=== PATIENT | female | born 1945 | race Caucasian/White ===

== ENCOUNTER 2018-01-09 08:37 | Emergency (ER) | payer MEDICARE ==
[~2018-01-09] VITALS: Ht 165.1 cm; Wt 68.5 kg
[~2018-01-09 08:37] MED LIST: CIMETIDINE; HYDROCODONE AP; Z.0.AMLODIPINE BESYL PO; Z.0.SYNTHROID100 MCG PO; Z.2.METFORMIN HCL500 PO
[2018-01-09] MEDS ORDERED: ONDANSETRON HCL INJ 2 MG/ML VIAL IV STA (09:04)
[2018-01-09 09:24] LABS: BASOPHILS % 0.4 % (0.0-1.0); EOSINOPHILS % 0.2 % (0.0-6.0); HEMATOCRIT 39.1 % (34.2-44.1); HEMOGLOBIN 13.9 g/dL (12.0-16.0); LYMPHOCYTES # (AUTO) 0.9 (1.0-3.2); LYMPHOCYTES % 16.4 % (18.0-39.1); MEAN CORPUSCULAR HGB CONC 35.5 g/dL (31-35); MEAN CORPUSCULAR VOLUME 84.3 fL (81-99); MONOCYTES # (AUTO) 0.2 (0.2-0.8); MONOCYTES % 3.8 % (4.4-11.3); NEUTROPHILS # (AUTO) 4.2 (2.1-6.9); PLATELET COUNT 285 x10e3/uL (140-360); RED BLOOD COUNT 4.64 x10e6/uL (3.6-5.1); RED CELL DISTRIBUTION WIDTH 11.9 % (11.7-14.4)
[2018-01-09 09:37] LABS: CLARITY,URINE CLEAR (CLEAR); COLOR,URINE YELLOW (YELLOW); LEUKOCYTE ESTERASE ,URINE TRACE (NEGATIVE); NITRITE,URINE NEGATIVE (NEGATIVE); PROTEIN,URINE DIPSTICK TRACE (NEGATIVE)
[2018-01-09 09:38] LABS: BILIRUBIN,URINE NEGATIVE (NEGATIVE); KETONES,URINE NEGATIVE (NEGATIVE); URINE UROBILINOGEN 0.2 mg/dL (0.2 - 1)
[2018-01-09] MEDS ORDERED: PRAVASTATIN SOD20 MG PO (09:40)
[2018-01-09] MEDS ORDERED: LISINOPRIL2.5 MG PO (09:40)
[2018-01-09 09:45] LABS: ALANINE AMINOTRANSFERASE 27 IU/L (0-55); ALBUMIN 3.9 g/dL (3.5-5.0); ALBUMIN/GLOBULIN RATIO 1.3 (0.8-2.0); ALKALINE PHOSPHATASE 75 IU/L (40-150); AMYLASE 53 U/L (25-125); ANION GAP 11.6 mmol/L (8-16); BLOOD UREA NITROGEN 8 mg/dL (7-26); BUN/CREATININE RATIO 11 (6-25); CALCIUM 9.6 mg/dL (8.4-10.2); CARBON DIOXIDE 25 mmol/L (22-29); CHLORIDE 103 mmol/L (98-107); CREATINE KINASE 45 IU/L (29-168); CREATININE, SERUM 0.76 mg/dL (0.57-1.11); EST GLOMERULAR FILTRATION RATE > 60 ML/MIN (60-); GLUCOSE 155 mg/dL (74-118); LIPASE 37 U/L (8-78); POTASSIUM 3.6 mmol/L (3.5-5.1); SODIUM 136 mmol/L (136-145)
[2018-01-09] MEDS ORDERED: ONDANSETRON HCL 4 MG ORAL DISINTEGRATING TAB PO ONE (09:45)
[2018-01-09 09:54] LABS: WBC,URINE (MAN) 0-5 /HPF (0-5)
[2018-01-09 09:55] LABS: EPITHELIAL CELLS,URINE FEW /LPF
[2018-01-09] MEDS ORDERED: CELEBREX100 MG PO (09:59)
[2018-01-09] MEDS ORDERED: TYLENOL # 31 EA PO (09:59)
[2018-01-09] MEDS ORDERED: REGLAN10 MG PO (09:59)
[2018-01-09] MEDS ORDERED: OMEPRAZOLE40 MG PO (09:59)
[2018-01-09] MEDS ORDERED: PROMETHAZINE HC25 M1 PO (09:59)
[2018-01-09] MEDS ORDERED: FAMOTIDINE20 MG PO (09:59)
[2018-01-09] MEDS ORDERED: SUCRALFATE1 GM PO (09:59)
--- NOTE | 2018-01-09 12:58 | Diagnostic Imaging Report ---
PROCEDURE:ABDOMEN ACUTE SERIES W/PA CXR COMPARISON:None available. INDICATIONS:EPIGASTRIC PAIN FINDINGS: CHEST: Lungs are grossly clear. No consolidation or effusion. Cardiomediastinal silhouette is unremarkable. Pulmonary vasculature is normal. BOWEL PATTERN: Nonobstructive. No air-filled, dilated loops of bowel. Moderate amount of retained stool in the colon. SOFT TISSUES: Cholecystectomy clips. 3.3 cm peripherally calcified lesion projecting in the right pelvis. BONES: No acute bony abnormalities. Degenerative disc changes in the lumbosacral spine. Moderate degenerative changes in bilateral hip joints, with joint space narrowing and subchondral sclerosis. 0.5 cm rounded calcifications projecting at the level of the left SI joint. Ill-defined 0.5 cm rounded density projecting just lateral to the left L4 transverse process. CONCLUSION: 1. No acute thoracic abnormality. 2. No evidence of bowel obstruction. 3. Indeterminate rounded calcific densities in the left pelvis. These may represent phleboliths, less likely vascular calcifications. A 3.3 cm peripherally calcified lesion in the right pelvis may represent an exophytic calcified fibroid or old hematoma. Technique 4. Ill-defined 0.5 cm rounded density projecting lateral to the left L4 transverse process may be located in bowel, however, a mid ureteral calculus could be considered in the setting of hematuria Denny Ariza M.D. Dictated by: Denny Ariza M.D. on 01/09/2018 at 12:59 Electronically approved by: Denny Ariza M.D. on 01/09/2018 at 12:59
[2018-01-09] MEDS ORDERED: KETOROLAC TROMETHAMINE 30 MG/ML VIAL IV STA (14:05)
[2018-01-09] MEDS ORDERED: KETOROLAC TROMETHAMINE 30 MG/ML VIAL IV SCH (14:15)
[2018-01-09 14:24] VITALS: BP 124/60
== END 2018-01-09 14:40 | disposition home or self-care (01) ==
LOC: ER 08:39
DX: R11.0 Nausea (principal); K59.00 Constipation, unspecified; E11.9 Type 2 diabetes mellitus without complications; I10 Essential (primary) hypertension
CPT/HCPCS: 36415; 74022; 80053; 81001; 82150; 82550; 82553; 83690; 84484; 85025; 93005; 99284

== ENCOUNTER 2018-03-27 15:45 | Emergency (ER) | payer MEDICARE ==
[~2018-03-27] VITALS: Ht 165.1 cm; Wt 68.5 kg
[~2018-03-27 15:45] MED LIST changes: +CELEBREX100 MG PO; +FAMOTIDINE20 MG PO; +LISINOPRIL2.5 MG PO; +OMEPRAZOLE40 MG PO; +PRAVASTATIN SOD20 MG PO; +PROMETHAZINE HC25 M1 PO; +REGLAN10 MG PO; +SUCRALFATE1 GM PO; +TYLENOL # 31 EA PO
[2018-03-27] MEDS ORDERED: SODIUM CHLORIDE 0.9% 1000ML 1,000 ML IV STA (16:18)
[2018-03-27 16:26] LABS: BILIRUBIN,URINE NEGATIVE (NEGATIVE); CLARITY,URINE CLEAR (CLEAR); COLOR,URINE YELLOW (YELLOW); KETONES,URINE NEGATIVE (NEGATIVE); LEUKOCYTE ESTERASE ,URINE NEGATIVE (NEGATIVE); NITRITE,URINE NEGATIVE (NEGATIVE); PROTEIN,URINE DIPSTICK NEGATIVE (NEGATIVE); URINE UROBILINOGEN 0.2 mg/dL (0.2 - 1)
[2018-03-27] MEDS ORDERED: KETOROLAC TROMETHAMINE 30 MG/ML VIAL IV ONE (16:30)
[2018-03-27] MEDS ORDERED: CEFTRIAXONE SOD 1 GM VIAL IV ONE (16:30)
[2018-03-27] MEDS ORDERED: FAMOTIDINE 20 MG/2 ML VIAL IV ONE (16:30)
[2018-03-27] MEDS ORDERED: ONDANSETRON HCL INJ 2 MG/ML VIAL IV ONE (16:30)
[2018-03-27 16:33] LABS: EPITHELIAL CELLS,URINE RARE /LPF; MUCUS,URINE FEW (RARE); RBC,URINE 0-5 /HPF (0-5)
[2018-03-27 16:54] LABS: BASOPHILS % 0.5 % (0.0-1.0); EOSINOPHILS % 0.6 % (0.0-6.0); HEMATOCRIT 37.9 % (34.2-44.1); HEMOGLOBIN 13.2 g/dL (12.0-16.0); LYMPHOCYTES # (AUTO) 1.1 (1.0-3.2); LYMPHOCYTES % 16.6 % (18.0-39.1); MEAN CORPUSCULAR HEMOGLOBIN 29.9 pg (28-32); MEAN CORPUSCULAR HGB CONC 34.8 g/dL (31-35); MEAN CORPUSCULAR VOLUME 85.7 fL (81-99); MONOCYTES # (AUTO) 0.4 (0.2-0.8); MONOCYTES % 5.6 % (4.4-11.3); NEUTROPHILS # (AUTO) 4.9 (2.1-6.9); NEUTROPHILS % 76.4 % (38.7-80.0); PLATELET COUNT 295 x10e3/uL (140-360); RED BLOOD COUNT 4.42 x10e6/uL (3.6-5.1); RED CELL DISTRIBUTION WIDTH 12.1 % (11.7-14.4)
[2018-03-27] MEDS ORDERED: DIATRIZOATE MEGL/DIATRIZOA SOD 30 ML BTL PO ONE (17:01)
[2018-03-27 17:12] LABS: ALANINE AMINOTRANSFERASE 14 IU/L (0-55); ALBUMIN 4.2 g/dL (3.5-5.0); ALBUMIN/GLOBULIN RATIO 1.6 (0.8-2.0); ALKALINE PHOSPHATASE 85 IU/L (40-150); ANION GAP 11.7 mmol/L (8-16); BLOOD UREA NITROGEN 10 mg/dL (7-26); BUN/CREATININE RATIO 14 (6-25); CALCIUM 9.6 mg/dL (8.4-10.2); CARBON DIOXIDE 27 mmol/L (22-29); CHLORIDE 98 mmol/L (98-107); EST GLOMERULAR FILTRATION RATE > 60 ML/MIN (60-); GLUCOSE 111 mg/dL (74-118); POTASSIUM 3.7 mmol/L (3.5-5.1); SODIUM 133 mmol/L (136-145)
--- NOTE | 2018-03-27 18:48 | Diagnostic Imaging Report ---
EXAM: CT Abdomen and Pelvis WITHOUT contrast INDICATION: Acute abdomen. Concern for small bowel obstruction, diverticulitis, pancreatitis or hernia. COMPARISON: None. TECHNIQUE: Abdomen and pelvis were scanned utilizing a multidetector helical scanner from the lung base to the pubic symphysis without administration of IV contrast. Absence of intravenous contrast decreases sensitivity for detection of focal lesions and vascular pathology. Coronal and sagittal reformations were obtained. Routine protocol was performed. IV CONTRAST: None. ORAL CONTRAST: Gastrografin water mixture. RADIATION DOSE: Total DLP: 319.61 mGy*cm Estimated effective dose: (DLP x 0.015 x size factor) mSv COMPLICATIONS: None FINDINGS: LINES and TUBES: None. LOWER THORAX: Unremarkable HEPATOBILIARY: No focal hepatic lesions. No biliary ductal dilation. GALLBLADDER: Status post cystectomy. SPLEEN: No splenomegaly. PANCREAS: No focal masses or ductal dilatation. ADRENALS: No adrenal nodules KIDNEYS/URETERS: No hydronephrosis. 5.2 cm cyst in the upper pole of the right kidney. No stones. GI TRACT: No abnormal distention, wall thickening, or evidence of bowel obstruction. Descending and sigmoid colon diverticulosis without CT evidence of acute diverticulitis. Appendix is not clearly identified, however, no dilated tubular structure in the right lower quadrant CT chest acute appendicitis. PELVIC ORGANS/BLADDER: Coarse calcification in the right hemipelvis abutting the right ovary, nonspecific. The uterus is retroflexed. LYMPH NODES: No lymphadenopathy. VESSELS: There is moderate atherosclerotic disease in the aorta and major arterial branches. PERITONEUM / RETROPERITONEUM: No free air or fluid. BONES: There are degenerative changes in the lumbar spine. SOFT TISSUES: Unremarkable. IMPRESSION: 1. Colonic diverticulosis without acute diverticulitis. Signed by: Dr. Kelly Joy M.D. on 03/27/2018 6:44 PM
== END 2018-03-27 19:10 | disposition home or self-care (01) ==
LOC: ER 15:50
DX: R10.33 Periumbilical pain (principal); R11.2 Nausea with vomiting, unspecified; R19.7 Diarrhea, unspecified; N23 Unspecified renal colic
CPT/HCPCS: 36415; 74176; 80053; 81001; 85025; 87086; 99284; J0696; J1885; J2405; J7030

== ENCOUNTER → 2020-04-08 | Outpatient (CLI) | payer MEDICARE ==
[~2020-04-08] MED LIST changes: +LEVOTHYROXINE50 MCG PO; +LINZESS290 MCG PO; +LOVASTATIN20 MG PO; +PROTONIX20 MG PO; +REGADENOSON 0.4 MG/5 ML SYR IV ONE
--- NOTE | 2020-04-09 16:32 | Myoview Stress Test ---
DATE OF STUDY: 04/08/2020 09:47:00 Stress Test - Treadmill ONLY Dictation #[id number] PROCEDURE TITLE: Rest/stress single isotope SPECT imaging with pharmacologic stress and gated SPECT imaging. INDICATION: Abnormal EKG. PROCEDURE IN DETAIL: Pharmacologic stress testing was performed with regadenoson per protocol. The heart rate was 84 beats per minute at rest, increased to 105 beats per minute during the regadenoson infusion. The resting blood pressure was 140/64 mmHg and increased to 165/49 mmHg, which is a normal response. The resting electrocardiogram demonstrated normal sinus rhythm with ST-T wave abnormalities. There were no ST-segment changes suggestive of myocardial ischemia. Myocardial perfusion imaging was performed at rest following the injection of 10.9 mCi of tetrofosmin. At peak pharmacologic effect, the patient was injected with 32.3 mCi of tetrofosmin. Gated post-stress tomographic imaging was performed. FINDINGS: The overall quality of study is fair. Left ventricular cavity is noted to be normal size on the rest and stress studies. SPECT images demonstrate homogeneous tracer distribution throughout the myocardium. Gated SPECT imaging reveals normal myocardial thickening and wall motion. The left ventricular ejection fraction was calculated to be greater than 70%. IMPRESSION: Myocardial perfusion imaging is normal. Overall, left ventricular systolic function was normal without regional wall motion abnormalities. Felicita Godinez MD ABS/MODL /[id number]
== END ==
LOC: NM 09:34
PROVIDERS: ATTEND Internal Medicine
DX: Z01.810 Encounter for preprocedural cardiovascular examination (principal)
CPT/HCPCS: 78452; 93017; 93306; A9502; J2785

== ENCOUNTER 2020-04-12 08:11 | Observation (INO) | payer MEDICARE, OTHER ==
--- NOTE | 2020-04-07 12:39 | Diagnostic Imaging Report ---
EXAMINATION: CHEST 2 VIEWS INDICATION: Pre-operative COMPARISON: None FINDINGS: LINES/TUBES:None LUNGS:The lungs are well-inflated. No focal consolidation or pulmonary edema. PLEURA:No pleural effusion or pneumothorax. MEDIASTINUM:The cardiomediastinal silhouette appears normal in size and shape. BONES/SOFT TISSUES:No acute osseous injury. Sternotomy wires in place. ABDOMEN:No free air under the diaphragm. IMPRESSION: No focal pneumonia or pulmonary edema. Signed by: Chino Yost MD on 04/07/2020 12:36 PM
[~2020-04-12] VITALS: Ht 167.6 cm; Wt 58.1 kg
[~2020-04-12 08:11] MED LIST changes: -REGADENOSON 0.4 MG/5 ML SYR IV ONE; +ROPIVACAINE 246.25 MG, EPINEPHRINE HCL 1:1000 1ML 0.5 MG, CLONIDINE HCL 0.08 MG, KETORO... INJ ONE
[2020-04-12 09:17] LABS: BASOPHILS % 0.5 % (0.0-1.0); EOSINOPHILS % 0.5 % (0.0-6.0); HEMATOCRIT 42.2 % (34.2-44.1); HEMOGLOBIN 13.8 g/dL (12.0-16.0); LYMPHOCYTES # (AUTO) 1.2 (1.0-3.2); LYMPHOCYTES % 19.4 % (18.0-39.1); MEAN CORPUSCULAR HEMOGLOBIN 28.5 pg (28-32); MEAN CORPUSCULAR HGB CONC 32.7 g/dL (31-35); MEAN CORPUSCULAR VOLUME 87.2 fL (81-99); MONOCYTES # (AUTO) 0.3 (0.2-0.8); MONOCYTES % 4.3 % (4.4-11.3); NEUTROPHILS # (AUTO) 4.7 (2.1-6.9); NEUTROPHILS % 75.1 % (38.7-80.0); PLATELET COUNT 331 x10e3/uL (140-360); RED BLOOD COUNT 4.84 x10e6/uL (3.6-5.1); RED CELL DISTRIBUTION WIDTH 12.7 % (11.7-14.4)
[2020-04-12] MEDS ORDERED: CELECOXIB 200 MG CAP ONE (09:20)
[2020-04-12] MEDS ORDERED: DEXAMETHASONE SOD PHOS 10 MG/1 ML VIAL ONE (09:20)
[2020-04-12] MEDS ORDERED: GABAPENTIN 300 MG CAP ONE (09:21)
[2020-04-12] MEDS ORDERED: CEFAZOLIN SOD 1 GM/NS 50ML 100 ML IV ONE (09:21)
[2020-04-12] MEDS ORDERED: VANCOMYCIN HCL 1,000 MG ONE (09:22)
[2020-04-12] MEDS ORDERED: SODIUM CHLORIDE 0.9% 500ML 500 ML ONE (09:22)
[2020-04-12] MEDS ORDERED: BACITRACIN 50,000 UNIT VIAL ONE (09:22)
[2020-04-12] MEDS ORDERED: TRANEXAMIC ACID 1,000 MG/10 ML ML ONE (09:22)
[2020-04-12] MEDS ORDERED: BUPIVACAINE 7.5MG/ML /DEXTROSE 82.5MG/ML 2 ML AMP INJ ONE (09:37)
[2020-04-12 09:45] LABS: ANION GAP 14.1 mmol/L (8-16); BLOOD UREA NITROGEN 14 mg/dL (7-26); BUN/CREATININE RATIO 21 (6-25); CALCIUM 9.7 mg/dL (8.4-10.2); CARBON DIOXIDE 25 mmol/L (22-29); CHLORIDE 104 mmol/L (98-107); CREATININE, SERUM 0.67 mg/dL (0.57-1.11); EST GLOMERULAR FILTRATION RATE > 60 ML/MIN (60-); GLUCOSE 112 mg/dL (74-118); POTASSIUM 4.1 mmol/L (3.5-5.1); SODIUM 139 mmol/L (136-145)
[2020-04-12] MEDS ORDERED: KETOROLAC TROMETHAMINE 30 MG/ML VIAL IV PRN (11:30)
[2020-04-12] MEDS ORDERED: ONDANSETRON HCL INJ 2MG/ML 2ML 2 MG/ML VIAL IV PRN (11:30)
[2020-04-12] MEDS ORDERED: ZOLPIDEM TARTRATE 5 MG TAB PO PRN (11:30)
[2020-04-12] MEDS ORDERED: ACETAMINOPHEN 650 MG SUPP PR PRN (11:30)
[2020-04-12] MEDS ORDERED: HYDROCODONE/APAP 5MG-325MG TAB PO PRN (11:30)
[2020-04-12] MEDS ORDERED: DIPHENHYDRAMINE HCL INJ 50 MG/ML VIAL IV PRN (11:30)
[2020-04-12] MEDS ORDERED: DOCUSATE SODIUM 100 MG CAP PO PRN (11:30)
--- NOTE | 2020-04-12 12:02 | Diagnostic Imaging Report ---
EXAMINATION: PELVIS AP 1-2 VIEWS INDICATION: Postoperative COMPARISON: None FINDINGS: AP view of the pelvis demonstrates immediate postoperative findings of right total hip replacement. Alignment is anatomic. No unexpected fracture. Postoperative subcutaneous soft tissue emphysema. Surgical skin meghann in place. Moderate degenerative changes of the [place] left hip joint. IMPRESSION: Anatomic alignment status post right total hip replacement. Signed by: Chino Yost MD on 04/12/2020 11:59 AM
--- NOTE | 2020-04-12 13:05 | NUR ---
RECEIVED PATIENT FROM PACU. PATIENT A/O X3, EVEN RESPIRATIONS ON RA. LUNG SOUNDS CLEAR. RIGHT HIP DRESSING C/D/I. ABDUCTOR PILLOW IN PLACE. FOOT PUMPS BILATERAL AND ANABELLA HOSE TO LEFT LEG. LEFT FA IV INTACT AND PATENT.
[2020-04-12 13:53] VITALS: BP 110/50
[2020-04-12 13:54] VITALS: BP 110/50
[2020-04-12 13:55] VITALS: BP 110/50
[2020-04-12] MEDS ORDERED: PHENYLEPHRINE HCL 1% 10 MG/ML VIAL ONE (13:56)
[2020-04-12] MEDS ORDERED: CEFAZOLIN SOD 1 GM/NS 50ML 50 ML IV SCH (14:00)
--- NOTE | 2020-04-12 15:26 | NUR ---
DR SARAVIA OFFICE PREARRANGED FOLLOWING DISCHARGE PLAN OF: HOME [address] [id number] [facility] CONFIRMED WITH [employer] [phone] DME 3 IN ONE COMMODE PROVIDED BY Who@ [employer] [phone], SHE HAS ALREADY PICKED UP, SHE HAS A ROLLATER AND NEEDS ROLLING WALKER, ASKED FOR ORDER, OBTAINED SIGNATURES AND PROVIDED ONE FOR HER. NEETA SIGNED AND ON CHART COPY LEFT WITH PATIENT GAVE CARD FOR QUESTIONS AND OR CONCERNS.
[2020-04-12] MEDS: SODIUM CHLORIDE 0.9% 1000ML 1,000 ML IV SCH ×2 (15:38→21:30)
[2020-04-12] MEDS: HYDROCODONE/APAP 7.5MG-325MG 1 EA TAB PO PRN ×2 (15:38→20:56)
[2020-04-12 15:55] VITALS: BP 105/46
[2020-04-12] MEDS: METFORMIN HCL 500 MG TAB PO SCH (16:43)
[2020-04-12] MEDS ORDERED: CELECOXIB 100 MG CAP PO SCH (17:00)
[2020-04-12] MEDS: ASPIRIN 325 MG TAB PO SCH (17:41)
[2020-04-12] MEDS: CELECOXIB 200 MG CAP PO SCH (17:41)
[2020-04-12] MEDS: CEFAZOLIN SOD 1 GM/NS 50ML 50 ML IV SCH (17:41)
--- NOTE | 2020-04-12 17:43 | NUR ---
PATIENT HAS VOIDED SINCE SURGERY. CALL LIGHT IN REACH WILL CONTINUE TO MONITOR.
--- NOTE | 2020-04-12 19:25 | NUR ---
BEDSIDE SHIFT REPORT RECEIVED FROM DAY RN. PT IS ALERT AND ORIENTED X3. RESPIRATIONS ARE EVEN AND UNLABORED. RT HIP DRESSING AQUACELLE INTACT. ABDUCTOR PILLOW IN PLACE. TYSON FOOT PUMPS ON.LT FA 20 G SL. PT UP TO BATHROOM WITH ONE ASSIST. PT REPORTS PAIN WHEN WALK TO BATHROOM. PT DENIES PAIN AT THIS TIME. PT USING IS AT BEDSIDE. PT TOLERATING PO WELL. CALL LIGHT WITHIN REACH. BED LOCKED AND IN LOW POSITION.
[2020-04-12 20:00] VITALS: BP 105/52
[2020-04-12 21:00] VITALS: BP 105/46
[2020-04-13] VITALS: BP 105/56
[2020-04-13] MEDS: ACETAMINOPHEN 1000 MG/100 ML IV PRN ×2 (00:10→06:52)
[2020-04-13] MEDS: CEFAZOLIN SOD 1 GM/NS 50ML 50 ML IV SCH ×2 (01:05→09:24)
[2020-04-13] MEDS: HYDROCODONE/APAP 7.5MG-325MG 1 EA TAB PO PRN ×3 (03:03→13:02)
[2020-04-13 04:00] VITALS: BP 121/57
[2020-04-13] MEDS ORDERED: METHOCARBAMOL 750 MG TAB PO ONE (04:45)
--- NOTE | 2020-04-13 05:12 | Consultation ---
DATE OF CONSULTATION: REASON FOR CONSULTATION: Postop medical management. HISTORY OF PRESENT ILLNESS: The patient is a 74-year-old lady, status post right hip arthroplasty for end-stage osteoarthritis. She complains of right hip pain at the moment. She describes it as a 5/10, but denies on review of systems any chest pain, fevers, chills, nausea, vomiting, shortness of breath, or dizziness. PAST MEDICAL HISTORY: Significant for hypertension, diabetes, and hypothyroidism. MEDICATIONS: See MAR. ALLERGIES: TRAMADOL, BACTRIM, ACETAMINOPHEN, CODEINE, AND SULFA. SOCIAL HISTORY: Former smoker over 10 years ago and . FAMILY HISTORY: Diabetes and heart disease. PHYSICAL EXAMINATION: VITAL SIGNS: Blood pressure is 105/56, pulse 67, temperature 96.0, sats 100% on room air. GENERAL: No apparent distress, lying in bed. NECK: Supple. CARDIOVASCULAR: Regular rate and rhythm. LUNGS: Clear to auscultation bilaterally. ABDOMEN: Good bowel sounds. Soft, nontender. EXTREMITIES: No clubbing or cyanosis. NEUROLOGIC: Nonfocal. Moves all extremities x4. ASSESSMENT AND PLAN: 1. Right hip pain. We will continue with postoperative care. Start with physical therapy. 2. Anemia. Check a CBC. 3. Diabetes. Continue with current care monitoring of her sugars. 4. Hypertension. Continue with her medication and monitoring of her blood pressure. 5. Hypothyroidism. Continue with medications. Please see hospital chart for full details. MD RICCO Navarrete/HO /[id number]
[2020-04-13 05:34] LABS: HEMATOCRIT 32.1 % (34.2-44.1); HEMOGLOBIN 10.9 g/dL (12.0-16.0)
[2020-04-13] MEDS ORDERED: LEVOTHYROXINE SODIUM 100 MCG TAB PO SCH (06:00)
--- NOTE | 2020-04-13 07:00 | NUR ---
RECEIVED PATIENT RESTING IN BED NO S/S OF DISTRESS. BED LOW, WHEELS LOCKED, SIDE RAILS X2. CALL LIGHT IN REACH WILL CONTINUE TO MONITOR PATIENT.
[2020-04-13] MEDS: SODIUM CHLORIDE 0.9% 1000ML 1,000 ML IV SCH (07:30)
--- NOTE | 2020-04-13 08:08 | Operative Report ---
DATE OF PROCEDURE: 04/12/2020 SURGEON: Jesus Muñoz MD BL[employer] EQUIPMENT TENDER: Ermias Taylor, certified PA. PREOPERATIVE DIAGNOSIS: Osteoarthritis, right hip. POSTOPERATIVE DIAGNOSIS: Osteoarthritis, right hip. PROCEDURE: Right total hip arthroplasty. INDICATIONS: The patient is a 74-year-old lady who has severe arthritis in her right hip. She has failed conservative management and would like to proceed with a right total hip replacement. The risks and benefits of the procedure have been discussed. All of her questions have been answered. She states she understands and wishes to proceed. DESCRIPTION OF PROCEDURE: The patient was brought to the operating room and given a spinal anesthetic. She received prophylactic antibiotics and tranexamic acid in the holding area. She was positioned in the left lateral decubitus position. Her right hip was prepped and draped in a sterile manner. A preoperative time-out was performed. A posterior approach was made to the right hip. Hemostasis was obtained with electrocautery. A self-retaining Charnley retractor was placed after incising the fascia. The posterior capsule was carefully exposed. Further hemostasis was obtained with electrocautery. The hip was severely contracted into external rotation. The posterior capsule and short external rotators were released. The hip was dislocated. An oscillating saw was used to resect the femoral head. Severe loss of articular cartilage was noted. Acetabular retractors were then carefully placed. Labral remnants were excised. The true floor of the acetabulum was established with a 46 mm reamer. The socket was then sequentially reamed to 55 mm. There was some superior erosive wear. A large subchondral cyst was debrided and packed with autologous bone graft, taken from the femoral head. The hip was thoroughly irrigated on several occasions during this portion of the case with a shower tip pulsatile lavage. A Uriel Biomet 56 mm outer diameter OsseoTi shell was then impacted into place. Fixation was augmented with a single 25 mm cancellous screw placed into the ilium. Nice purchase of the screw was encountered. The hip was further irrigated and then a highly cross-linked polyethylene liner was seated into place. Care was taken to make sure that there was no evidence of soft tissue interposition. The socket was packed with a moistly soaked lap sponge and attention was directed towards the proximal femur. A box cutting osteotome and taper pin reamer were used to establish entry to the femoral canal. Bone quality was marginal. The Taperloc broaches were impacted. A size 13 stem had good canal fill and rotational stability for trial reduction. A standard 36 mm head was felt to provide appropriate soft tissue balancing, confucianism of limb length and stability through a full arc of motion. The trial implants were then removed. A 100 mL premixed pericapsular MICHAEL injection was placed into the surrounding soft tissue. The stem was seated. A standard 36 mm head was then placed onto the stem after making sure that it was clean and dry. A final reduction was performed. The posterior capsule was well preserved. This was repaired with #2 Ethibond. A 500 mg of vancomycin powder were then sprinkled into the deep wound. The fascia was closed with interrupted #2 Ethibond. The skin was closed with subcuticular Vicryl and meghann. A sterile Aquacel bandage was applied. The patient was returned to the supine position and transported to the recovery room in stable condition. Estimated blood loss was 50 mL. All needle and sponge counts were correct. Jesus Muñoz MD DR/HO /[id number]
[2020-04-13 08:42] VITALS: BP 133/70
[2020-04-13] MEDS: METFORMIN HCL 500 MG TAB PO SCH (08:45)
[2020-04-13] MEDS: CELECOXIB 200 MG CAP PO SCH (08:45)
[2020-04-13] MEDS: ASPIRIN 325 MG TAB PO SCH (08:46)
[2020-04-13] MEDS ORDERED: PANTOPRAZOLE SOD 40 MG TABEC PO SCH (09:00)
[2020-04-13] MEDS ORDERED: AMLODIPINE BESYLATE 5 MG TAB PO SCH (09:00)
[2020-04-13] MEDS ORDERED: LISINOPRIL 2.5 MG TAB PO SCH (09:00)
[2020-04-13 09:31] VITALS: BP 133/70
[2020-04-13] MEDS ORDERED: ACETAMINOPHEN 1000 MG/100 ML IV PRN (11:30)
[2020-04-13 11:49] VITALS: BP 102/49
--- NOTE | 2020-04-13 13:00 | NUR ---
REMOVED PATIENTS IV. CATHETER TIP INTACT AND PRESSURE DRESSING APPLIED.
--- NOTE | 2020-04-13 13:25 | NUR ---
PATIENT DISCHARGED FROM FACILITY. PATIENT GATHERED ALL PERSONAL BELONGINGS, DISCHARGE INSTRUCTIONS, AND FOLLOW UP INFORMATION. LEFT UNIT IN WHEELCHAIR AND WENT HOME VIA PRIVATE AUTO. NO S/S OF DISTRESS LEAVING FACILITY.
== END 2020-04-13 13:25 | disposition home or self-care (01) ==
LOC: OR 08:11 → PACU V 10:54 → MED/SURG 13:07
PROVIDERS: ADMIT Specialist; ATTEND Specialist
DX: M16.11 Unilateral primary osteoarthritis, right hip (principal); E11.9 Type 2 diabetes mellitus without complications; I51.9 Heart disease, unspecified; Z90.49 Acquired absence of other specified parts of digestive tract; E03.9 Hypothyroidism, unspecified; K21.9 Gastro-esophageal reflux disease without esophagitis; D64.9 Anemia, unspecified; I10 Essential (primary) hypertension; E78.5 Hyperlipidemia, unspecified; Z88.5 Allergy status to narcotic agent; Z88.2 Allergy status to sulfonamides; Z88.8 Allergy status to other drugs, medicaments and biological substances; Z83.3 Family history of diabetes mellitus; Z87.442 Personal history of urinary calculi; Z82.49 Family history of ischemic heart disease and other diseases of the circulatory system; Z87.891 Personal history of nicotine dependence; Z11.59 Encounter for screening for other viral diseases; Z79.84 Long term (current) use of oral hypoglycemic drugs
CPT/HCPCS: 27130; 36415 ×2; 71046; 72170; 80048; 82948 ×2; 85014; 85018; 85025; 86850; 86900; 86920; 97116 ×2; 97139; 97161; 97530 ×2; C1713; C1734; C1776 ×2; G0378 ×2; J0131; J0171; J0690 ×2; J1100; J1885; J2370; J2795; J3370; J7030; J7040; S0164; U0002

== ENCOUNTER → 2023-01-09 | Day surgery (SDC) | payer MEDICARE ==
[~2023-01-09] MED LIST changes: +LACTATED RINGER'S 1,000 ML ONE; +LIDOCAINE HCL 2% LOCAL INJ 5 ML SDV VIAL INJ ONE; +POVIDONE IODINE 0.05% 0.05 % ML PO ONE; +PROPOFOL IV EMULSION 10 MG/ML 20 ML VIAL ONE; -ROPIVACAINE 246.25 MG, EPINEPHRINE HCL 1:1000 1ML 0.5 MG, CLONIDINE HCL 0.08 MG, KETORO... INJ ONE; +VITAMIN B122500 MCG PO; +VITAMIN C500 MG PO
[2023-01-09 13:38] VITALS: BP 127/65
== END | disposition home or self-care (01) ==
LOC: OR 09:46
PROVIDERS: ATTEND Internal Medicine Gastroenterology
DX: Z12.11 Encounter for screening for malignant neoplasm of colon (principal); D12.4 Benign neoplasm of descending colon; K57.30 Diverticulosis of large intestine without perforation or abscess without bleeding; K59.04 Chronic idiopathic constipation; K64.8 Other hemorrhoids; R07.0 Pain in throat; I10 Essential (primary) hypertension; E03.9 Hypothyroidism, unspecified; E11.9 Type 2 diabetes mellitus without complications; E78.5 Hyperlipidemia, unspecified; Z88.1 Allergy status to other antibiotic agents; Z88.2 Allergy status to sulfonamides; Z01.810 Encounter for preprocedural cardiovascular examination; Z79.84 Long term (current) use of oral hypoglycemic drugs; Z79.899 Other long term (current) drug therapy; Z68.38 Body mass index [BMI] 38.0-38.9, adult
CPT/HCPCS: 36415; 45384; 82948; 88305; 93005; J2001; J2704; J7121; 45378